=== PATIENT | female | born 1955 | race Hispanic/Latino ===

== ENCOUNTER 2018-08-28 05:59 | Observation (INO) | payer BC ==
[2018-08-14 11:22] VITALS: BMI 28.1
--- NOTE | 2018-08-28 07:17 | CP.PCM.HP ---
History of Present Illness - History of Present Illness History of Present Illness: 63 F with right knee osteoarthritis who failed conservative management, elected for a right total knee replacement NKDA pmhx: hypothyroidism, HTN, high cholesterol No hx of IN, stroke, stents, blood clots, or bleeding disorders Present on Admission - Present on Admission Any Indicators Present on Admission: No History of DVT/PE: No History of Uncontrolled Diabetes: No Review of Systems - Musculoskeletal Musculoskeletal: Stiffness Past Patient History - CARDIAC Hx Pacemaker: No - NEUROLOGICAL Hx Paralysis: No - HEMATOLOGICAL/ONCOLOGICAL Hx Blood Transfusions: No - MUSCULOSKELETAL/RHEUMATOLOGICAL Hx Musculoskeletal Disorders: Yes - PSYCHIATRIC Hx Emotional Abuse: No Hx Physical Abuse: No Hx Substance Use: No - SURGICAL HISTORY Hx Surgeries: Yes - ANESTHESIA Hx Anesthesia Reactions: No Hx Malignant Hyperthermia: No Meds Allergies/Adverse Reactions: Allergies Allergy/AdvReac Type Severity Reaction Status Date / Time lactose Allergy Severe GI UPSET Verified 08/14/18 11:22 Physical Exam - Constitutional Appears: Well, No Acute Distress - Head Exam Head Exam: ATRAUMATIC, NORMAL INSPECTION, NORMOCEPHALIC - Neck Exam Neck exam: Positive for: Full Rom, Normal Inspection - Respiratory Exam Respiratory Exam: NORMAL BREATHING PATTERN - Cardiovascular Exam Cardiovascular Exam: RRR - Expanded Lower Extremities Exam Right Knee exam: crepitus, tenderness, normal inspection (calf and thigh are soft and nontender to palpation. NVI distally ) - Neurological Exam Neurological exam: Alert, CN II-XII Intact, Oriented x3 - Psychiatric Exam Psychiatric exam: Normal Affect, Normal Mood - Skin Skin Exam: Dry, Intact, Normal Color Results - Vital Signs Recent Vital Signs: Last Vital Signs Temp 98.3 F 08/28/18 06:41 Pulse 73 08/28/18 06:41 Resp 18 08/28/18 06:41 BP 140/82 08/28/18 06:41 Pulse Ox 96 08/28/18 06:41 Assessment & Plan (1) Primary osteoarthritis of right knee Assessment and Plan: NPO T&S OR for Right total knee replacement Patient medically optimized for surgery Risks,benefits, and alternatives discussed and patient verbalizes understanding and would like to proceed Status: Acute (2) Hypertension Status: Chronic (3) Hyperlipemia Status: Chronic (4) Hypothyroidism Status: Chronic
[2018-08-28] MEDS ORDERED: Vancomycin 1 g Inj ONE ×2 (07:29→08:49)
[2018-08-28] MEDS ORDERED: Sodium Chloride 0.9% 60 ML IV ONE (07:30)
[2018-08-28] MEDS ORDERED: Tranexamic Acid 1 ML ONE ×2 (07:30→10:23)
[2018-08-28] MEDS ORDERED: Propofol 10 mg/ml Inj (20 ML) ONE (07:40)
[2018-08-28] MEDS ORDERED: Midazolam 2 MG/2 ML VIAL ONE (07:41)
[2018-08-28] MEDS ORDERED: Succinylcholine 200 mg/10 ml Inj IV ONE (07:41)
[2018-08-28] MEDS ORDERED: Bupivacaine 0.5% Inj(30mL) ONE (07:41)
[2018-08-28] MEDS ORDERED: Rocuronium 10 mg/ml (5 ml) ONE (08:29)
[2018-08-28] MEDS: Bupivacaine Liposomal Inj 20 ml ONE ×2 (09:07→10:20)
--- NOTE | 2018-08-28 10:44 | PCM.SURG1 ---
Surgeon's Initial Post Op Note - Surgeon's Notes Surgeon: Delaney Nicole MD Contractor Field Hauling: Jerman Cerna PA-C Type of Anesthesia: General Endo Anesthesia Administered By: Dr. Benjamin Pre-Operative Diagnosis: right knee osteoarthritis Operative Findings: see full note Post-Operative Diagnosis: same Operation Performed: right total knee arthroplasty Specimen/Specimens Removed: femoral, tibia, and patellar bone Estimated Blood Loss: EBL {In ML}: 75 Blood Products Given: N/A Post-Op Condition: Fair Date of Surgery/Procedure: 08/28/18 Time of Surgery/Procedure: 10:44
[2018-08-28] MEDS ORDERED: oxyCODONE 10 mg Immediate Release Tab PO PRN (10:52)
[2018-08-28] MEDS ORDERED: HYDROmorphone 1 mg/ml ISec IVP PRN (10:52)
[2018-08-28] MEDS ORDERED: oxyCODONE 5 mg Immediate Release Tab PO PRN (10:52)
[2018-08-28] MEDS ORDERED: Neostigmine Methylsulfate 3mg/3ml Syringe IV ONE (11:22)
[2018-08-28] MEDS ORDERED: Morphine 2 mg/ml ISec IVP PRN ×2 (11:29→11:35)
[2018-08-28] MEDS ORDERED: HYDROmorphone 0.5 mg/0.5 ml ISec IVP PRN ×2 (11:29→11:34)
--- NOTE | 2018-08-28 11:38 | PCM.ANESB3 ---
Femoral Nerve Block - Femoral Nerve Block Date of Procedure: 08/28/18 Anesthesiologist: Cassidy Pre-Procedure Diagnosis: Right knee total replacement Post-Procedure Diagnosis: same Procedure Performed: Femoral Nerve Block Right - Procedure Femoral Nerve Block: The procedure was explained to the patient that it is for the post-operative pain management. Consent was obtained after a thorough discussion with the patient regarding the benefits and possible complications of local anesthetic block of the femoral nerve at the inguinal crease area. The patient was brought to the operating room and standard monitors were applied. Time-out was held with the circulating nurse to confirm the correct surgery and the appropriate block. After applying oxygen by nasal cannula and administering IV Sedation, patient was placed in supine position with fully extended lower extremities and the ____right____ groin exposed. The femoral artery was then carefully palpated. The ultrasound transducer was then applied to this area in the transverse plane and the femoral nerve was visualized lateral to the femoral artery and underneath the fascia iliaca. After thorough identification, the inguinal crease area was prepped with Betadine solution three times and 1 % Lidocaine was injected subcutaneously for topical anesthesia. At this point, a #22 gauge Stimuplex 2-inch needle was inserted immediately lateral to the femoral artery pulse at the inguinal crease and advanced perpendicularly. The needle was inserted to the ultrasound transducer in-plane towards the femoral nerve in a [id number] direction. Needle advancement was performed carefully under direct ultrasound visualization. Nerve stimulator was used and twitch of the quadriceps muscle was obtained at current of __0.3___MA. After negative aspiration, _5____cc of 0.25____% ___Bupivacaine was injected and this was followed with ___10___ cc of ___0.5____ % ___Bupivacaine . Under ultrasound guidance the local anesthetics were observed spreading below fascia iliaca and around the femoral nerve. The needle was removed intact and sterile dressing was applied. The patient had stable vital signs, was conscious and in no apparent distress. The patient tolerated the femoral nerve block well with stable vital signs and was prepared for subsequent surgery.
[2018-08-28] MEDS ORDERED: Lactated Ringer's 1,000 ML IV SCH (12:15)
--- NOTE | 2018-08-28 12:20 | RAD ---
Date of service: 08/28/2018 PROCEDURE: Right knee two views HISTORY: s/p R TKA. pt in PACU COMPARISON: TECHNIQUE: Two views FINDINGS: There is a right knee prosthesis in satisfactory alignment. There are no complicating factors. IMPRESSION: No complicating factors
--- NOTE | 2018-08-28 12:31 | OP ---
PROCEDURE DATE: 08/28/2018 PREOPERATIVE DIAGNOSIS: Right knee degenerative joint disease. POSTOPERATIVE DIAGNOSIS: Right knee degenerative joint disease. PROCEDURE: Right total knee arthroplasty. SURGEON: Gabe Nicole MD. HOT MILL SHEARER: Dr. Nicole was assisted by Danuta Gallo, the physician assistant finance manager and Michael Hein, the physician assistant finance manager. Both physician assistants were scrubbed and present throughout the entire case and assisted in the patient positioning, retraction and wound closure. ANESTHESIA: General. COMPLICATIONS: None. ESTIMATED BLOOD LOSS: 50 mL. TOURNIQUET TIME: 83 minutes at 300 mmHg. IMPLANT: Biomet Vanguard total knee. INDICATIONS FOR PROCEDURE: This is a 63-year-old female, who presented with longstanding right knee pain. Clinical examination was consistent with medial and parapatellar tenderness to palpation, pain with axial load, pain at the extremities with knee flexion. Radiographic examination was consistent with advanced degenerative joint disease. After a period of failed nonsurgical management including activity modification, medication as well as injections, recommendations were for right total knee arthroplasty. The risks, benefits and alternatives of the procedure were discussed with the patient and the informed consent was obtained. OPERATIVE PROCEDURE: After the surgical site was signed and verified in the preoperative holding area, the patient was taken to the operating room and placed supine on the operating room table. After administration of general anesthesia, The patient received 2 g of Ancef IV. Mas catheter was inserted. Venodyne boot was placed on the nonoperative extremity. Care was taken to make sure all bony prominences and nerves were well padded and protected and the right lower extremity was prepped and draped in the usual sterile fashion. The right lower extremity was exsanguinated and tourniquet was inflated at 300 mmHg. Approximately 10 cm longitudinal midline incision was made. Soft tissues were dissected sharply down to the knee joint and the medial parapatellar arthrotomy was performed. The medial and lateral menisci, the anterior fat pad, the ACL, PCL were all resected. Once the knee joint had been adequately exposed, a step drill was used to drill to the medullary canal of the distal femur and the intramedullary distal femoral cutting block was inserted. A distal femoral resection was then performed and our femoral component was sized. At this point, the four-in-one cut block was then pinned into place and our anterior and posterior cuts were performed. Next, the box cut was performed on the distal femur and our attention was directed to the tibia. An extramedullary tibial guide was placed, then satisfied with our alignment, our tibial resection was performed. At this point, our flexion and extension gaps were checked. The patient was noted to be balanced with varus and valgus stress and had full flexion and extension. At this point, the medullary canal of the proximal tibia was reamed and punched with the cruciate punch. With the trial tibia, trial femur, trial bearing in place, the knee was taken through range of motion and was noted to be stable with full extension and flexion. At this point, our attention was directed to the patella. The thickness of the patella was measured and our patellar resection was performed. The patellar button was sized and the holes for our patellar button were then drilled. A trial patella was then placed and the knee was taken through a range of motion and patella was noted to track normally. At this point, all the trial components were removed and the knee joint was pulse lavaged with antibiotic saline solution. The bony surfaces were dried and the actual tibial, femoral and patellar components were cemented into place. Care was taken to remove all excess cement while the cement hardened. Once the cement had hardened, the wound was inspected for any debris and was once again pulse lavaged. The actual bearing was then inserted and locked into place with a cross pin. Knee was again taken through a range of motion and was noted to be stable throughout. The tourniquet was deflated and any obvious bleeding was cauterized. A medium Hemovac drain was inserted and the arthrotomy was closed using #1 Vicryl suture. Subcutaneous tissue was closed using 0 Vicryl and 2-0 Vicryl suture and the skin was closed using 3-0 nylon. A sterile dressing was applied and the patient was awakened from the procedure, taken to the recovery room in stable condition. Gabe Nicole MD
[2018-08-28] MEDS: ceFAZolin IV 2 gm in Dextrose 2 GM/50 ML BAG IVPB SCH (16:11)
[2018-08-28] MEDS: Levothyroxine 100 MCG TAB PO SCH (17:40)
[2018-08-28] MEDS ORDERED: Pneumococcal 23-Valent Vaccine IM ONE (19:38)
[2018-08-28] MEDS ORDERED: Influenza Vaccine 60 mcg/0.5 mL SYR (4YR UP) IM ONE (19:38)
[2018-08-29] MEDS: ceFAZolin IV 2 gm in Dextrose 2 GM/50 ML BAG IVPB SCH (01:18)
[2018-08-29 06:31] LABS: BLOOD UREA NITROGEN 13 mg/dL (7-21); CALCIUM 8.6 mg/dL (8.4-10.5); GFR NON-AFRICAN AMERICAN > 60
[2018-08-29 06:57] LABS: BASO # 0.01 K/mm3 (0.0-2.0); BASO % 0.1 % (0.0-3.0); EOS % 0.3 % (1.5-5.0); GRAN # 5.13 (1.4-6.5); GRAN % 76.4 % (50.0-68.0); LYMPH # 0.9 (1.2-3.4); LYMPH % 13.5 % (22.0-35.0); MEAN CELL VOLUME 90.5 fl (80.0-105.0); MEAN CORPUSCULAR HGB CONC 33.1 g/dl (31.0-37.0); MEAN PLATELET VOLUME 9.7 fl (7.0-11.0); MONO # 0.7 (0.1-0.6); MONO % 9.7 % (1.0-6.0); RBC 3.57 10^6/uL (3.5-6.1); RED CELL DISTRIBUTION WIDTH 13.1 % (11.5-14.5); WHITE BLOOD COUNT 6.7 10^3/uL (4.5-11.0)
[2018-08-29 07:11] LABS: HEMOGLOBIN 10.7 g/dL (12.0-16.0)
--- NOTE | 2018-08-29 07:32 | CP.PCM.CON ---
<Mario Nicolas - Last Filed: 08/29/18 10:18> History of Present Illness - History of Present Illness History of Present Illness: Mario Nicolas DO, PGY-2: Medical Consult Note for Dr. Wright 63 year old female with a past medical history of hypertension, hypothyroidism, osteoarthritis who came to [facility] for elective right TKA. She is POD number 1. Medicine was consulted to manage the patient post-operatively. At the time of my encounter she reports experiencing no pain. We informed her that she will likely experience pain with physical therapy and encouraged her to use oral pain medications as needed. She will be on Eliquis 2.5 BID for post-operative She denies any headache, nausea, vomiting, fever, chills, abdominal pain, visual changes, changes in hearing, hair loss, polydipsia, polyuria or unilateral weakness or numbness. PMH: hypertension, hypothyroidism, dyslipidemia PSH: Right carpal tunnel repair Allergies: Denies, chart review indicates lactose allergy Family History: Osteoarthritis Social: Homemaker, denies tobacco or illicit drug use, drinks socially Review of Systems - Review of Systems All systems: reviewed and no additional remarkable complaints except (as per HPI) Past Patient History - Past Social History Smoking Status: Never Smoked - CARDIAC Hx Cardiac Disorders: Yes Hx Hypercholesterolemia: Yes Hx Pacemaker: No - PULMONARY Hx Respiratory Disorders: No - NEUROLOGICAL Hx Neurological Disorder: No - HEENT Hx HEENT Problems: No - RENAL Hx Chronic Kidney Disease: No - ENDOCRINE/METABOLIC Hx Endocrine Disorders: No - HEMATOLOGICAL/ONCOLOGICAL Hx Blood Disorders: No - INTEGUMENTARY Hx Dermatological Problems: No - MUSCULOSKELETAL/RHEUMATOLOGICAL Hx Musculoskeletal Disorders: Yes (right knee djd,right knee arthroplasty,right carpal tunnel) Hx Falls: No - GASTROINTESTINAL Hx Gastrointestinal Disorders: No - GENITOURINARY/GYNECOLOGICAL Hx Genitourinary Disorders: No - PSYCHIATRIC Hx Psychophysiologic Disorder: Yes (insomnia) Hx Emotional Abuse: No Hx Physical Abuse: No Hx Substance Use: No - SURGICAL HISTORY Hx Surgeries: Yes (right knee replacement.) - ANESTHESIA Hx Anesthesia Reactions: No Hx Malignant Hyperthermia: No Meds Allergies/Adverse Reactions: Allergies Allergy/AdvReac Type Severity Reaction Status Date / Time lactose Allergy Severe GI UPSET Verified 08/28/18 18:16 - Medications Medications: Current Medications Acetaminophen (Tylenol 325mg Tab) 650 mg PO Q6 [facility] Last Admin: 08/29/18 06:00 Dose: 650 mg Apixaban (Eliquis) 2.5 mg PO BID [facility]; Protocol Diphenhydramine HCl (Benadryl) 25 mg PO Q6 PRN PRN Reason: Itching / Pruritus Docusate Sodium (Colace) 100 mg PO BID [facility] Last Admin: 08/28/18 18:36 Dose: 100 mg Ezetimibe (Zetia) 10 mg PO QPM [facility] Last Admin: 08/28/18 18:37 Dose: 10 mg Hydrochlorothiazide (Microzide) 12.5 mg PO DAILY [facility] Last Admin: 08/28/18 17:40 Dose: Not Given Hydromorphone HCl (Dilaudid) 1 mg IVP Q4H PRN PRN Reason: Pain, severe (8-10) Last Admin: 08/28/18 21:00 Dose: 1 mg Hydromorphone HCl (Dilaudid) 0.5 mg IVP Q15M PRN PRN Reason: Pain, severe (8-10) Lactated Ringer's (Lactated Ringer's) 1,000 mls @ 100 mls/hr IV .Q10H [facility] Last Admin: 08/29/18 02:00 Dose: 100 mls/hr Levothyroxine Sodium (Synthroid) 100 mcg PO DAILY [facility] Last Admin: 08/28/18 17:40 Dose: Not Given Lisinopril (Zestril) 10 mg PO DAILY [facility] Last Admin: 08/28/18 17:41 Dose: Not Given Morphine Sulfate (Morphine) 2 mg IVP Q15M PRN PRN Reason: Pain, moderate (4-7) Multivitamins/Minerals (Therapeutic-M Tab) 1 tab PO DAILY [facility] Ondansetron HCl (Zofran Inj) 4 mg IVP Q6H PRN PRN Reason: Nausea/Vomiting Ondansetron HCl (Zofran Inj) 4 mg IVP ONCE PRN PRN Reason: Nausea/Vomiting Oxycodone HCl (Oxycodone Immediate Release Tab) 5 mg PO Q4H PRN PRN Reason: Pain, Mild (1-3) Oxycodone HCl (Oxycodone Immediate Release Tab) 10 mg PO Q4H PRN PRN Reason: Pain, moderate (4-7) Sennosides (Senokot Tab) 17.2 mg PO HS [facility] Last Admin: 08/28/18 20:59 Dose: 17.2 mg Zolpidem Tartrate (Ambien) 10 mg PO HS [facility]; Protocol Last Admin: 08/28/18 20:59 Dose: 10 mg Physical Exam - Constitutional Appears: Non-toxic, No Acute Distress - Head Exam Head Exam: ATRAUMATIC, NORMOCEPHALIC - Eye Exam Eye Exam: EOMI, Normal appearance - ENT Exam ENT Exam: Mucous Membranes Moist - Neck Exam Neck exam: Positive for: Normal Inspection - Respiratory Exam Respiratory Exam: Clear to Auscultation Bilateral, NORMAL BREATHING PATTERN - Cardiovascular Exam Cardiovascular Exam: RRR, +S1, +S2 - GI/Abdominal Exam GI & Abdominal Exam: Soft. absent: Guarding, Rebound - Extremities Exam Extremities exam: Positive for: normal inspection. Negative for: calf tenderness, pedal edema - Back Exam Back exam: NORMAL INSPECTION - Neurological Exam Neurological exam: Alert, CN II-XII Intact, Oriented x3 - Psychiatric Exam Psychiatric exam: Normal Affect, Normal Mood - Skin Skin Exam: Dry, Intact, Normal Color, Warm Results - Vital Signs Recent Vital Signs: Last Vital Signs Temp 98.3 F 08/28/18 16:40 Pulse 76 08/28/18 16:40 Resp 19 08/28/18 19:02 BP 118/65 08/28/18 16:40 Pulse Ox 99 08/28/18 16:40 - Labs Result Diagrams: 08/29/18 05:30 08/29/18 05:30 Labs: Laboratory Results - last 24 hr 08/28/18 08/29/18 08/29/18 06:00 05:30 05:30 WBC 6.7 RBC 3.57 Hgb 10.7 L D Hct 32.3 L MCV 90.5 MCH 30.0 MCHC 33.1 RDW 13.1 Plt Count 172 MPV 9.7 Gran % 76.4 H Lymph % (Auto) 13.5 L Rapides % (Auto) 9.7 H Eos % (Auto) 0.3 L Baso % (Auto) 0.1 Gran # 5.13 Lymph # (Auto) 0.9 L Rapides # (Auto) 0.7 H Eos # (Auto) 0.0 Baso # (Auto) 0.01 Sodium 137 Potassium 3.6 Chloride 104 Carbon Dioxide 28 Anion Gap 9 L BUN 13 Creatinine 0.6 L Est GFR ( Amer) > 60 Est GFR (Non-Af Amer) > 60 Random Glucose 109 Calcium 8.6 Blood Type B POSITIVE Antibody Screen Negative Assessment & Plan - Assessment and Plan (Free Text) Assessment: 63 year old female with a past medical history of hypertension, dyslipidemia, hypothyroidism, osteoarthritis and insomnia who is s/p right total knee replacement. Plan: 1)S/P Right total knee arthroplasty - Incentive spirometery - Analgesia with IV and PO medications - Eliquis 2.5 mg BID for DVT prophylaxis - Physical therapy - OOB as tolerated 2) Hypertension - HCTZ 25 - Lisinopril 10 mg 3) Hyperlipidemia - Ezetimibe 10 mg 4) Hypothyroidism - Levothyroxine 100 mcg daily 5) Constipation - Colace 100 mg BID - Sennosides A and B 6) DVT prophylaxis - Eliquis 2.5 mg BID Case was reviewed and discussed with attending physician, Dr. Wright - Date & Time Date: 08/29/18 Time: 10:32 <Dmitriy Wright - Last Filed: 08/29/18 20:12> Meds - Medications Medications: Current Medications Acetaminophen (Tylenol 325mg Tab) 650 mg PO Q6 [facility] Last Admin: 08/29/18 17:43 Dose: Not Given Apixaban (Eliquis) 2.5 mg PO BID [facility]; Protocol Last Admin: 08/29/18 17:47 Dose: 2.5 mg Bisacodyl (Dulcolax) 5 mg PO ONCE ONE Stop: 08/29/18 22:01 Diphenhydramine HCl (Benadryl) 25 mg PO Q6 PRN PRN Reason: Itching / Pruritus Docusate Sodium (Colace) 100 mg PO BID [facility] Last Admin: 08/29/18 17:46 Dose: 100 mg Ezetimibe (Zetia) 10 mg PO QPM [facility] Last Admin: 08/29/18 17:47 Dose: 10 mg Hydrochlorothiazide (Microzide) 12.5 mg PO DAILY [facility] Last Admin: 08/29/18 11:00 Dose: Not Given Hydromorphone HCl (Dilaudid) 1 mg IVP Q4H PRN PRN Reason: Pain, severe (8-10) Last Admin: 08/28/18 21:00 Dose: 1 mg Levothyroxine Sodium (Synthroid) 100 mcg PO DAILY [facility] Last Admin: 08/29/18 11:00 Dose: 100 mcg Lisinopril (Zestril) 10 mg PO DAILY [facility] Last Admin: 08/29/18 13:43 Dose: Not Given Multivitamins/Minerals (Therapeutic-M Tab) 1 tab PO DAILY [facility] Last Admin: 08/29/18 13:50 Dose: 1 tab Ondansetron HCl (Zofran Inj) 4 mg IVP Q6H PRN PRN Reason: Nausea/Vomiting Oxycodone HCl (Oxycodone Immediate Release Tab) 5 mg PO Q4H PRN PRN Reason: Pain, Mild (1-3) Oxycodone HCl (Oxycodone Immediate Release Tab) 10 mg PO Q4H PRN PRN Reason: Pain, moderate (4-7) Last Admin: 08/29/18 13:50 Dose: 10 mg Sennosides (Senokot Tab) 17.2 mg PO [facility] Last Admin: 08/28/18 20:59 Dose: 17.2 mg Zolpidem Tartrate (Ambien) 10 mg PO [facility]; Protocol Last Admin: 08/28/18 20:59 Dose: 10 mg Results - Vital Signs Recent Vital Signs: Last Vital Signs Temp 98.4 F 08/29/18 15:23 Pulse 83 08/29/18 15:23 Resp 20 08/29/18 15:23 BP 128/68 08/29/18 15:23 Pulse Ox 96 08/29/18 15:23 - Labs Result Diagrams: 08/29/18 05:30 08/29/18 05:30 Labs: Laboratory Results - last 24 hr 08/29/18 08/29/18 05:30 05:30 WBC 6.7 RBC 3.57 Hgb 10.7 L D Hct 32.3 L MCV 90.5 MCH 30.0 MCHC 33.1 RDW 13.1 Plt Count 172 MPV 9.7 Gran % 76.4 H Lymph % (Auto) 13.5 L Rapides % (Auto) 9.7 H Eos % (Auto) 0.3 L Baso % (Auto) 0.1 Gran # 5.13 Lymph # (Auto) 0.9 L [place]ides # (Auto) 0.7 H Eos # (Auto) 0.0 Baso # (Auto) 0.01 Sodium 137 Potassium 3.6 Chloride 104 Carbon Dioxide 28 Anion Gap 9 L BUN 13 Creatinine 0.6 L Est GFR ( Amer) > 60 Est GFR (Non-Af Amer) > 60 Random Glucose 109 Calcium 8.6 Assessment & Plan - Assessment and Plan (Free Text) Plan: Pt seen and examined. I have reviewed the note of the medical records administrator and agree with it. I have discussed the assessment and plan with the resident. I have reviewed the patient's labs and medications. Pt had a R TKR. She said her pain is controlled. She is on Eliquis for prophylaxis. She will need PT. Her BP is conrolled with HCTZ. Her hyperlipidemia is controlled with Ezetimibe. She is on hypothyroidism medications with Levothyroxine. She will be on constipation medications with Colace.
[2018-08-29] MEDS: Levothyroxine 100 MCG TAB PO SCH (11:00)
--- NOTE | 2018-08-29 11:11 | CP.PCM.PN ---
Subjective - Date & Time of Evaluation Date of Evaluation: 08/29/18 Time of Evaluation: 07:40 - Subjective Subjective: POD #1. Patient seen and examined. Patient alert and awake, laying in bed. Patient denies any significant pain. Afebrile WBC 6.7 Hgb 10.7 R Knee: dressings are clean, dry and intact. Hemovac in place on suction. +AROM foot and ankle. Sensation intact to light touch. Thigh and calf are soft and non-tender. NVI distally POD#1 s/p R TKA Cont DVT prophylaxis Cont PT Cont pain control Cont incentive spirometer Dressing changes tomorrow Discharge plan is to home tomorrow with home PT and visiting nurse Discussed above with Dr. Nicole, agrees with above. Objective - Vital Signs/Intake and Output Vital Signs (last 24 hours): Temp Pulse Resp BP Pulse Ox 98.3 F 76 19 118/65 99 08/28/18 16:40 08/28/18 16:40 08/28/18 19:02 08/28/18 16:40 08/28/18 16:40 Intake and Output: 08/29/18 08/29/18 06:59 18:59 Intake Total 1200 Output Total 920 Balance 280 - Medications Medications: Current Medications Acetaminophen (Tylenol 325mg Tab) 650 mg PO Q6 [facility] Last Admin: 08/29/18 06:00 Dose: 650 mg Apixaban (Eliquis) 2.5 mg PO BID [facility]; Protocol Diphenhydramine HCl (Benadryl) 25 mg PO Q6 PRN PRN Reason: Itching / Pruritus Docusate Sodium (Colace) 100 mg PO BID [facility] Last Admin: 08/28/18 18:36 Dose: 100 mg Ezetimibe (Zetia) 10 mg PO QPM [facility] Last Admin: 08/28/18 18:37 Dose: 10 mg Hydrochlorothiazide (Microzide) 12.5 mg PO DAILY [facility] Last Admin: 08/28/18 17:40 Dose: Not Given Hydromorphone HCl (Dilaudid) 1 mg IVP Q4H PRN PRN Reason: Pain, severe (8-10) Last Admin: 08/28/18 21:00 Dose: 1 mg Hydromorphone HCl (Dilaudid) 0.5 mg IVP Q15M PRN PRN Reason: Pain, severe (8-10) Lactated Ringer's (Lactated Ringer's) 1,000 mls @ 100 mls/hr IV .Q10H [facility] Last Admin: 08/29/18 02:00 Dose: 100 mls/hr Levothyroxine Sodium (Synthroid) 100 mcg PO DAILY [facility] Last Admin: 08/28/18 17:40 Dose: Not Given Lisinopril (Zestril) 10 mg PO DAILY [facility] Last Admin: 08/28/18 17:41 Dose: Not Given Morphine Sulfate (Morphine) 2 mg IVP Q15M PRN PRN Reason: Pain, moderate (4-7) Multivitamins/Minerals (Therapeutic-M Tab) 1 tab PO DAILY [facility] Ondansetron HCl (Zofran Inj) 4 mg IVP Q6H PRN PRN Reason: Nausea/Vomiting Ondansetron HCl (Zofran Inj) 4 mg IVP ONCE PRN PRN Reason: Nausea/Vomiting Oxycodone HCl (Oxycodone Immediate Release Tab) 5 mg PO Q4H PRN PRN Reason: Pain, Mild (1-3) Oxycodone HCl (Oxycodone Immediate Release Tab) 10 mg PO Q4H PRN PRN Reason: Pain, moderate (4-7) Sennosides (Senokot Tab) 17.2 mg PO [facility] Last Admin: 08/28/18 20:59 Dose: 17.2 mg Zolpidem Tartrate (Ambien) 10 mg PO HS [facility]; Protocol Last Admin: 08/28/18 20:59 Dose: 10 mg - Labs Labs: 08/29/18 05:30 08/29/18 05:30 Assessment and Plan (1) Primary osteoarthritis of right knee Status: Acute (2) Hypertension Status: Chronic (3) Hyperlipemia Status: Chronic (4) Hypothyroidism Status: Chronic
[2018-08-29] MEDS: Multivitamin With Minerals Tab PO SCH (13:50)
[2018-08-29] MEDS ORDERED: Bisacodyl 5mg EC Tab PO ONE (22:00)
[2018-08-30 07:24] LABS: BASO # 0.01 K/mm3 (0.0-2.0); BASO % 0.1 % (0.0-3.0); EOS % 0.1 % (1.5-5.0); GRAN # 5.66 (1.4-6.5); GRAN % 78.6 % (50.0-68.0); HEMOGLOBIN 10.5 g/dL (12.0-16.0); LYMPH # 0.8 (1.2-3.4); LYMPH % 10.6 % (22.0-35.0); MEAN CORPUSCULAR HGB CONC 33.3 g/dl (31.0-37.0); MEAN PLATELET VOLUME 9.4 fl (7.0-11.0); MONO # 0.8 (0.1-0.6); MONO % 10.6 % (1.0-6.0); RBC 3.5 10^6/uL (3.5-6.1); RED CELL DISTRIBUTION WIDTH 12.9 % (11.5-14.5); WHITE BLOOD COUNT 7.2 10^3/uL (4.5-11.0)
[2018-08-30 07:41] LABS: BLOOD UREA NITROGEN 9 mg/dL (7-21); CALCIUM 8.6 mg/dL (8.4-10.5); GFR NON-AFRICAN AMERICAN > 60
[2018-08-30 07:55] VITALS: RESP 20
[2018-08-30] MEDS ORDERED: Potassium Chloride 20 mEq ER Tab PO ONE (08:39)
--- NOTE | 2018-08-30 08:49 | CP.PCM.DIS ---
Provider - Provider Attending physician: Gabe Nicole MD Primary care physician: Luis F Murcia MD Time Spent in preparation of Discharge (in minutes): 30 Diagnosis - Discharge Diagnosis (1) Primary osteoarthritis of right knee Status: Acute (2) Hypertension Status: Chronic (3) Hyperlipemia Status: Chronic (4) Hypothyroidism Status: Chronic Hospital Course - Lab Results Lab Results: Most Recent Lab Values WBC 7.2 10^3/uL (4.5-11.0) 08/30/18 07:00 RBC 3.50 10^6/uL (3.5-6.1) 08/30/18 07:00 Hgb 10.5 g/dL (12.0-16.0) L 08/30/18 07:00 Hct 31.5 % (36.0-48.0) L 08/30/18 07:00 MCV 90.0 fl (80.0-105.0) 08/30/18 07:00 MCH 30.0 pg (25.0-35.0) 08/30/18 07:00 MCHC 33.3 g/dl (31.0-37.0) 08/30/18 07:00 RDW 12.9 % (11.5-14.5) 08/30/18 07:00 Plt Count 170 10^3/uL (120.0-450.0) 08/30/18 07:00 MPV 9.4 fl (7.0-11.0) 08/30/18 07:00 Gran % 78.6 % (50.0-68.0) H 08/30/18 07:00 Lymph % (Auto) 10.6 % (22.0-35.0) L 08/30/18 07:00 [facility] % (Auto) 10.6 % (1.0-6.0) H 08/30/18 07:00 Eos % (Auto) 0.1 % (1.5-5.0) L 08/30/18 07:00 Baso % (Auto) 0.1 % (0.0-3.0) 08/30/18 07:00 Gran # 5.66 (1.4-6.5) 08/30/18 07:00 Lymph # (Auto) 0.8 (1.2-3.4) L 11/08/18 07:00 [facility] # (Auto) 0.8 (0.1-0.6) H 08/30/18 07:00 Eos # (Auto) 0.0 (0.0-0.7) 08/30/18 07:00 Baso # (Auto) 0.01 K/mm3 (0.0-2.0) 08/30/18 07:00 Sodium 135 mmol/L (132-148) 08/30/18 07:00 Potassium 3.4 mmol/L (3.6-5.0) L 08/30/18 07:00 Chloride 103 mmol/L (98-107) 08/30/18 07:00 Carbon Dioxide 27 mmol/L (21-33) 08/30/18 07:00 Anion Gap 8 (10-20) L 08/30/18 07:00 BUN 9 mg/dL (7-21) 08/30/18 07:00 Creatinine 0.6 mg/dl (0.7-1.2) L 08/30/18 07:00 Est GFR ( Amer) > 60 08/30/18 07:00 Est GFR (Non-Af Amer) > 60 08/30/18 07:00 Random Glucose 111 mg/dL (70-110) H 08/30/18 07:00 Calcium 8.6 mg/dL (8.4-10.5) 08/30/18 07:00 Blood Type B POSITIVE 08/28/18 06:00 Antibody Screen Negative 08/28/18 06:00 BBK History Checked Patient has bt 08/28/18 06:00 - Hospital Course Hospital Course: 63 F with phmx HTN, hyperlipidemia, hypothyroidism with right knee osteoarthr itis failed conservative management and elected for TKR. Postoperative imaging demonstrated acceptable position of prosthesis. Medical consultation was requested for post operative medical management. HTN controlled throughout admission. Patients post operative course was complicated by acute blood loss anemia, hemodynamically stable and well tolerated, no treatment needed. Patient tolerated PT/OT well. Patient received VTE prophylaxis in the form of Eliquis 2.5mg BID and venodynes. Patient was instructed to maintain knee immobilizer at night, to remove during the day, and instructed patient to continue aggressive ROM of the knee. Patient was discharged to Home with home PT, ambulating with walker, and given instructions for dressing changes and to after f/u Dr. Nicole in 2 weeks. - Date & Time of H&P Date of H&P: 08/30/18 Time of H&P: 08:42 Discharge Exam - Head Exam Head Exam: ATRAUMATIC, NORMAL INSPECTION, NORMOCEPHALIC - Respiratory Exam Respiratory Exam: NORMAL BREATHING PATTERN - Cardiovascular Exam Cardiovascular Exam: RRR - Extremities Exam Additional comments: R knee: Dressing changed. Incision clean, dry and intact with sutures in place. No erythema or drainage. Hemovac removed. Incision cleaned and new aquacel dressing applied. Thigh and calf are soft and nontender to palpation. NVI distally Discharge Plan - Follow Up Plan Additional Instructions: f/u with Dr. Nicole in 2 weeks Cont PT with [facility] of RLE Dressing changes with NSS and apply light dry dressings Continue Eliquis 2.5mg BID for 14 days Referrals: Luis F Murcia MD [Primary Care Provider] -
[2018-08-30] MEDS: Multivitamin With Minerals Tab PO SCH (10:19)
[2018-08-30] MEDS: Levothyroxine 100 MCG TAB PO SCH (10:19)
--- NOTE | 2018-08-30 13:18 | CP.PCM.PN ---
<Mario Nicolas - Last Filed: 08/30/18 13:19> Subjective - Date & Time of Evaluation Date of Evaluation: 08/30/18 Time of Evaluation: 07:00 - Subjective Subjective: Mario Nicolas DO, PGY-2: Progress Note for Dr. Wright Patient was seen and examined at bedside. Patient had sporadic fever overnight that resolved with Tylenol. Patient has no t passed a bowel movement yet. Plan per orthopedics is to discharge patient. Objective - Vital Signs/Intake and Output Vital Signs (last 24 hours): Temp Pulse Resp BP Pulse Ox 98.7 F 87 20 131/66 97 08/30/18 06:00 08/30/18 06:00 08/30/18 06:00 08/30/18 06:00 08/30/18 06:00 Intake and Output: 08/30/18 08/30/18 06:59 18:59 Intake Total 940 Balance 940 - Medications Medications: Current Medications Acetaminophen (Tylenol 325mg Tab) 650 mg PO Q6 [facility] Last Admin: 08/29/18 20:26 Dose: 650 mg Apixaban (Eliquis) 2.5 mg PO BID [facility]; Protocol Last Admin: 08/30/18 10:19 Dose: 2.5 mg Diphenhydramine HCl (Benadryl) 25 mg PO Q6 PRN PRN Reason: Itching / Pruritus Docusate Sodium (Colace) 100 mg PO BID [facility] Last Admin: 08/30/18 10:19 Dose: 100 mg Ezetimibe (Zetia) 10 mg PO QPM [facility] Last Admin: 08/29/18 17:47 Dose: 10 mg Hydrochlorothiazide (Microzide) 12.5 mg PO DAILY [facility] Last Admin: 08/30/18 10:19 Dose: 12.5 mg Hydromorphone HCl (Dilaudid) 1 mg IVP Q4H PRN PRN Reason: Pain, severe (8-10) Last Admin: 08/28/18 21:00 Dose: 1 mg Levothyroxine Sodium (Synthroid) 100 mcg PO DAILY [facility] Last Admin: 08/30/18 10:19 Dose: 100 mcg Lisinopril (Zestril) 10 mg PO DAILY [facility] Last Admin: 08/30/18 10:19 Dose: 10 mg Multivitamins/Minerals (Therapeutic-M Tab) 1 tab PO DAILY [facility] Last Admin: 08/30/18 10:19 Dose: 1 tab Ondansetron HCl (Zofran Inj) 4 mg IVP Q6H PRN PRN Reason: Nausea/Vomiting Oxycodone HCl (Oxycodone Immediate Release Tab) 5 mg PO Q4H PRN PRN Reason: Pain, Mild (1-3) Oxycodone HCl (Oxycodone Immediate Release Tab) 10 mg PO Q4H PRN PRN Reason: Pain, moderate (4-7) Last Admin: 08/29/18 13:50 Dose: 10 mg Sennosides (Senokot Tab) 17.2 mg PO HS [facility] Last Admin: 08/29/18 21:29 Dose: 17.2 mg Zolpidem Tartrate (Ambien) 10 mg PO HS [facility]; Protocol Last Admin: 08/29/18 21:28 Dose: 10 mg - Labs Labs: 08/30/18 07:00 08/30/18 07:00 - Constitutional Appears: Well, Non-toxic - Head Exam Head Exam: ATRAUMATIC, NORMOCEPHALIC - Eye Exam Eye Exam: EOMI, Normal appearance - ENT Exam ENT Exam: Mucous Membranes Moist - Neck Exam Neck Exam: Normal Inspection - Respiratory Exam Respiratory Exam: Clear to Ausculation Bilateral, NORMAL BREATHING PATTERN - Cardiovascular Exam Cardiovascular Exam: RRR, +S1, +S2 - GI/Abdominal Exam GI & Abdominal Exam: Soft, Normal Bowel Sounds - Extremities Exam Extremities Exam: Normal Inspection. absent: Calf Tenderness - Back Exam Back Exam: NORMAL INSPECTION. absent: CVA tenderness (L), CVA tenderness (R) - Neurological Exam Neurological Exam: Alert, Awake, Oriented x3 - Psychiatric Exam Psychiatric exam: Normal Affect, Normal Mood - Skin Skin Exam: Dry, Intact, Normal Color, Warm Assessment and Plan - Assessment and Plan (Free Text) Assessment: 63 year old female with a past medical history of hypertension, dyslipidemia, hypothyroidism, osteoarthritis and insomnia who is s/p right total knee replacement. Plan: 1)S/P Right total knee arthroplasty - Incentive spirometery - Analgesia with IV and PO medications - Eliquis 2.5 mg BID for DVT prophylaxis - Physical therapy - OOB as tolerated 2) Hypertension - HCTZ 25 - Lisinopril 10 mg 3) Hyperlipidemia - Ezetimibe 10 mg 4) Hypothyroidism - Levothyroxine 100 mcg daily 5) Constipation - Colace 100 mg BID - Sennosides A and B 6) DVT prophylaxis - Eliquis 2.5 mg BID Patient was stable for discharge per primary, As always, thank you for allowing us to participate in the care of this patient. Case was reviewed and discussed with attending physician, Dr. Wright <Dmitriy Wright - Last Filed: 08/30/18 18:23> Objective - Vital Signs/Intake and Output Vital Signs (last 24 hours): Temp Pulse Resp BP Pulse Ox 99.9 F H 88 20 126/68 96 08/30/18 14:00 08/30/18 14:00 08/30/18 14:00 08/30/18 14:00 08/30/18 14:00 Intake and Output: 08/30/18 08/30/18 06:59 18:59 Intake Total 940 Balance 940 - Medications Medications: Current Medications Acetaminophen (Tylenol 325mg Tab) 650 mg PO Q6 [facility] Last Admin: 08/30/18 17:23 Dose: 650 mg Apixaban (Eliquis) 2.5 mg PO BID [facility]; Protocol Last Admin: 08/30/18 17:23 Dose: 2.5 mg Diphenhydramine HCl (Benadryl) 25 mg PO Q6 PRN PRN Reason: Itching / Pruritus Docusate Sodium (Colace) 100 mg PO BID [facility] Last Admin: 08/30/18 17:23 Dose: Not Given Ezetimibe (Zetia) 10 mg PO QPM [facility] Last Admin: 08/30/18 17:23 Dose: 10 mg Hydrochlorothiazide (Microzide) 12.5 mg PO DAILY [facility] Last Admin: 08/30/18 10:19 Dose: 12.5 mg Hydromorphone HCl (Dilaudid) 1 mg IVP Q4H PRN PRN Reason: Pain, severe (8-10) Last Admin: 08/28/18 21:00 Dose: 1 mg Levothyroxine Sodium (Synthroid) 100 mcg PO DAILY [facility] Last Admin: 08/30/18 10:19 Dose: 100 mcg Lisinopril (Zestril) 10 mg PO DAILY [facility] Last Admin: 08/30/18 10:19 Dose: 10 mg Multivitamins/Minerals (Therapeutic-M Tab) 1 tab PO DAILY [facility] Last Admin: 08/30/18 10:19 Dose: 1 tab Ondansetron HCl (Zofran Inj) 4 mg IVP Q6H PRN PRN Reason: Nausea/Vomiting Oxycodone HCl (Oxycodone Immediate Release Tab) 5 mg PO Q4H PRN PRN Reason: Pain, Mild (1-3) Oxycodone HCl (Oxycodone Immediate Release Tab) 10 mg PO Q4H PRN PRN Reason: Pain, moderate (4-7) Last Admin: 08/29/18 13:50 Dose: 10 mg Sennosides (Senokot Tab) 17.2 mg PO HS [facility] Last Admin: 08/29/18 21:29 Dose: 17.2 mg Zolpidem Tartrate (Ambien) 10 mg PO HS [facility]; Protocol Last Admin: 08/29/18 21:28 Dose: 10 mg - Labs Labs: 08/30/18 07:00 08/30/18 07:00 Assessment and Plan - Assessment and Plan (Free Text) Assessment: Pt seen and examined. I have reviewed the note of the chief medical technologist and agree with it. I have discussed the assessment and plan with the resident. I have reviewed the patient's labs and medications. Pt had R TKR and is feeling well. She had low K and I replaced it with KCL. The pt has HTN that is controlled with HCTZ and Lisinopril. The pain is controlled. Spoke to Ortho [employer] and no new issues. She will need PT. She has constipation and is on Colace and Senna.
[2018-08-30 15:39] VITALS: BP 126/68; PULSE 88; O2SAT 96
[2018-08-30 18:26] VITALS: TEMP 98.9
== END 2018-08-30 21:13 | disposition home health service (06) ==
LOC: SDS 05:59 → 5RNO 17:00 → SDS 08-29 13:10 → 5RNO 08-29 13:10
PROVIDERS: ADMIT Orthopaedic Surgery; ATTEND Orthopaedic Surgery
DX: M17.11 Unilateral primary osteoarthritis, right knee (principal); I10 Essential (primary) hypertension; E03.9 Hypothyroidism, unspecified; E78.00 Pure hypercholesterolemia, unspecified; E78.5 Hyperlipidemia, unspecified; D62 Acute posthemorrhagic anemia; K59.00 Constipation, unspecified; G47.00 Insomnia, unspecified; Z91.018 Allergy to other foods
CPT/HCPCS: 27447; 36415; 64447; 73560; 80048; 85025; 86850; 86900; 88304; 88311; 96365; 97110; 97116; 97530; C1713; C1776; G0378; J0330; J0690; J1170; J2250; J2405; J2704; J2710; J3010; J7120